=== PATIENT | male | born 1985 | race Two or more races ===

== ENCOUNTER 2024-07-06 21:28 | Emergency (ER) | payer MEDICAID ==
[~2024-07-06] VITALS: Ht 170.2 cm; Wt 72.7 kg
[2024-07-06 21:35] VITALS: TEMP 98.6
[2024-07-06 21:44] LABS: COVID AG,FIA SOURCE NASAL SWAB
[2024-07-06 22:00] LABS: RAPID GROUP A STREP NEGATIVE (NEGATIVE)
[2024-07-06 22:07] LABS: INFLUENZA TYPE A NEGATIVE FOR TYPE A (NEGATIVE); INFLUENZA TYPE B NEGATIVE FOR TYPE B (NEGATIVE); SARS-COV2 (COVID) ANTIGEN,FIA Negative (Negative)
[2024-07-07] MEDS ORDERED: IBUP-1554 PO (01:07)
[2024-07-07] MEDS ORDERED: ACET-2080 PO (01:07)
[2024-07-07] MEDS: ACETAMINOPHEN/CODEINE 300-30 MG TABLET PO ONE (01:12)
[2024-07-07] MEDS: IBUPROFEN 600 MG TABLET PO ONE (01:12)
[2024-07-07 01:45] VITALS: BP 132/84; PULSE 96; RESP 16; O2SAT 99
== END 2024-07-07 02:03 | disposition home or self-care (01) ==
LOC: EMS 21:28
DX: J02.9 Acute pharyngitis, unspecified (principal); Z20.822 Contact with and (suspected) exposure to COVID-19
CPT/HCPCS: 87430; 87804; 99283